=== PATIENT | male | born 2000 | race African-American/Black ===

== ENCOUNTER 2025-02-22 15:14 | Emergency (ER) | payer MEDICAID ==
[~2025-02-22] VITALS: Ht 180.3 cm; Wt 97.0 kg
[2025-02-22] MEDS: DEXAMETHASONE 4MG TABLET PO ONE (16:26)
[2025-02-22 16:39] VITALS: PULSE 96; RESP 18; O2SAT 95
[2025-02-22] MEDS: IPRATROPIUM BROMIDE (0.02%) 0.5MG/2.5ML NEB HHN SCH (16:39)
[2025-02-22] MEDS: ALBUTEROL (0.083%) 2.5MG/3ML NEB HHN SCH (16:39)
[2025-02-22 17:09] LABS: BASOPHILS % 0.7 % (0.0-2.0); EOSINOPHILS % 5.4 % (0.0-5.0); HEMATOCRIT. 43.1 % (42.0-52.0); HEMOGLOBIN. 14.9 g/dL (14.0-18.0); LYMPHOCYTES % 13.9 % (20.0-50.0); MEAN PLATELET VOLUME 10.2 fl (7.4-10.4); MONOCYTES % 8.0 % (2.0-8.0); NEUTROPHILS % 72.0 % (40.0-76.0); PLATELET 190 x1000/uL (130-400); RED BLOOD CELL COUNT 4.87 mill/uL (4.7-6.1); RED CELL DISTRIBUTION WIDTH 13.4 % (11.6-14.6)
[2025-02-22 17:18] LABS: CREATININE 0.9 mg/dL (0.6-1.3); UREA NITROGEN BLOOD 9 mg/dL (9-23)
[2025-02-22 18:39] VITALS: BP 129/77; PULSE 79; RESP 18; TEMP 36.9; O2SAT 100
[2025-02-22] MEDS ORDERED: ALBU18HF2 IH (18:57)
[2025-02-23] MEDS ORDERED: P20 PO (08:27)
[2025-02-23] MEDS ORDERED: ALBU18HF2 IH (08:27)
== END 2025-02-22 19:05 | disposition home or self-care (01) ==
LOC: ER 15:14 → CANBEDREQ 18:58 → ER 19:05
DX: J45.909 Unspecified asthma, uncomplicated (principal); Z79.899 Other long term (current) drug therapy
CPT/HCPCS: 80048; 85025; 36415; 71045; 93005; 94644; 99291; J8540; Z7610 ×2; 94070; 94640

== ENCOUNTER 2025-02-23 06:12 | Emergency (ER) | payer MEDICAID ==
[~2025-02-23] VITALS: Ht 185.4 cm; Wt 105.0 kg
[~2025-02-23 06:12] MED LIST: ALBU18HF2 IH
[2025-02-23] MEDS: PREDNISONE 20MG TABLET PO STA (06:50)
[2025-02-23 07:20] VITALS: PULSE 114; RESP 16; O2SAT 93
[2025-02-23] MEDS: IPRATROPIUM/ALBUTEROL 0.5-3(2.5)MG/3ML NEB HHN ONE (07:20)
[2025-02-23] MEDS ORDERED: ALBU18HF2 IH (08:27)
[2025-02-23] MEDS ORDERED: P20 PO (08:27)
[2025-02-23 08:37] VITALS: BP 140/89; PULSE 93; RESP 18; TEMP 36.9; O2SAT 95
== END 2025-02-23 08:44 | disposition home or self-care (01) ==
LOC: ER 06:12
DX: J45.901 Unspecified asthma with (acute) exacerbation (principal)
CPT/HCPCS: 94640; 99285; J7512; Z7610 ×4; 94070; 94664; 98960

== ENCOUNTER 2025-05-16 15:19 | Emergency (ER) | payer MEDICAID ==
[~2025-05-16] VITALS: Ht 185.4 cm; Wt 105.0 kg
[~2025-05-16 15:19] MED LIST changes: +P20 PO
[2025-05-16] MEDS: PREDNISONE 20MG TABLET PO ONE (16:06)
[2025-05-16 16:19] VITALS: PULSE 87; RESP 16; O2SAT 97
[2025-05-16] MEDS: IPRATROPIUM/ALBUTEROL 0.5-3(2.5)MG/3ML NEB HHN ONE ×3 (16:19→16:50)
[2025-05-16] MEDS ORDERED: BUDE6.9H INH (16:43)
[2025-05-16] MEDS ORDERED: P20 PO (16:43)
[2025-05-16 16:50] VITALS: PULSE 84; RESP 16; O2SAT 99
[2025-05-16 17:32] VITALS: BP 132/86; PULSE 85; RESP 17; TEMP 36.7; O2SAT 99
== END 2025-05-16 17:34 | disposition home or self-care (01) ==
LOC: ER 15:19
DX: J45.901 Unspecified asthma with (acute) exacerbation (principal); Z79.51 Long term (current) use of inhaled steroids; Z79.52 Long term (current) use of systemic steroids; Z87.891 Personal history of nicotine dependence
CPT/HCPCS: 71045; 94640; 99284; J7512; Z7610 ×3